=== PATIENT | female | born 1960 | race Caucasian/White ===

== ENCOUNTER 2016-12-08 18:01 | Emergency (ER) | payer MEDICARE, OTHER ==
--- NOTE | ~2016-12-08 | CR72 ---
[facility] A Service of [facility] RADIOLOGY TEXT RESULTS PATIENT: JAI VILLAREAL LOCATION: SED : 58 UNIT #: [id number] AGE: [address]: Honey Mora SEX: F ORDER DR: [id number] [address] [address] [id number] E MR#: [id number] Acc #: [id number] NAME: JAI VILLAREAL : 1960 SEX: F STUDY DATE/TIME: 12/08/2016 18:03 UNIT: SED ROOM: STUDY DESCRIPTION: CR Chest Single View Portable Attending Physician: Honey Mora Pa-C Ordering Physician: Honey Mora Pa-C Primary Care Physician: Beulah Sin A.P.R.N. MEDICAL IMAGING REPORT This report is preliminary unless electronic signature is present. EXAM AP radiograph of the chest 12/08/2016 HISTORY Short of air. COPD. FINDINGS AP radiograph of the chest is presented. Comparison to CT of the chest 11/03/2016. No acute bony abnormality. Heart normal in size. Hyperinflation of the lungs consistent with known underlying emphysema. No pleural effusion or pneumothorax. Airspace disease in the right infrahilar region with partial obscuration of the right heart border suggesting acute pneumonia in right middle lobe medial segment. Less pronounced patchy densities in the left infrahilar region suggesting a component of left lower lobe infrahilar pneumonia. Follow up to complete radiographic resolution recommended. If findings do not resolve with treatment for pneumonia then CT examination would be recommended for further assessment. There is some linear atelectasis or scarring at the right lung base. Left nipple shadow artifact similar to prior plain radiograph in 2014. There is no indication of suspicious nodule. Dictated by... Moustapha So M.D. THIS IS AN ELECTRONICALLY VERIFIED REPORT Moustapha So M.D. at 12/09/2016 3:05 PM KRYS/carole TD: 12/08/2016 23:12 JOB #: [id number] [facility] A Service of [facility] RADIOLOGY TEXT RESULTS PATIENT: JAI VILLAREAL LOCATION: SED : 58 UNIT #: [id number] AGE: [address]: Honey Mora SEX: F ORDER DR: MEDICAL IMAGING REPORT Page 1 of 1
--- NOTE | ~2016-12-08 | EKG ---
PATIENT: JAI VILLAREAL UNIT #: [id number] Ventricular Rate: 107 BPM Atrial Rate: 107 BPM P-R Interval: 144 ms QRS Duration: 106 ms Q-T Interval: 328 ms QTC Calculation(Bezet): 437 ms P [place]: 80 degrees Calculated R [place]: -167 degrees Calculated T [place]: 53 degrees Diagnosis Line: Sinus tachycardia Diagnosis Line: Right superior axis deviation Diagnosis Line: Pulmonary disease pattern Diagnosis Line: Incomplete right bundle branch block Diagnosis Line: Right ventricular hypertrophy Diagnosis Line: Abnormal ECG Diagnosis Line: When compared with ECG of 19-JUN-2015 16:43, Diagnosis Line: Criteria for Septal infarct are no longer Present Diagnosis Line: Confirmed by JORGE BARBER MD ([id number]) on 12/18/2016 Diagnosis Line: 11:50:35 AM INTERPRETING MD: ELISABETH AHUMDAA
[~2016-12-08 18:01] MED LIST: ADVAIR 500-501 EACH IN; ADVAIR 5001 DISK W/1 IH; ADVAIR 5001 DISK W/2 IH; ADVAIR 5001 DISK W/D PO; ALBUTEROL MININEB NEB; ALBUTEROL17 GM INH; ALPRAZOLAM0.5 MG PO; ALPRAZOLAM1 MG PO; AMOXICILLIN PO; ANEXSIA 7.5/3251 TA1 PO; ASPIRIN81 M2 PO; ASPIRIN81 MG PO; AUGMENTIN PO; COLACE PO; DOXYCYCLINE HY100 M3; DOXYCYCLINE PO; DUONEB 2.5-0.5 M3 ML NEB; EFFIENT10 MG PO; ENSURE237 ML PO; GUAIFENESIN LA600 M1 PO; LEVAQUIN PO; LEVAQUIN750 MG PO; LIPITOR20 MG PO; LORTAB 5/500 TA1 TA1 PO; MEDROL PO; MIRALAX17 G2 PO; NITROSTAT0.4 MG SL; NORCO 5/325 TAB1 TAB PO; OXYGEN; PERCOCET 5/321 UDTAB PO; PERCOCET 51 UDTAB 5/ PO; PHENERGAN25 MG PO; PREDNISONE PO; PREDNISONE TAPER; PREDNISONE10 MG PO; SPIRIVA18 MCG INH; TYLENOL325 M1 PO; VERAMYST10 GM; VERAMYST10 GM IN; VERAMYST10 GM NS; VOLTAREN50 MG PO; XANAX0.5 M1 PO; ZITHROMAX PO; [UNRECOGNIZED DRUG - OTHER] PO
[2016-12-08 18:34] LABS: BASOPHIL% 0.1 % (0-2.5); DIFF IND NO; HEMATOCRIT 32.3 % (35.0-45.0); HEMOGLOBIN 10.6 gm/dL (12.0-16.0); LYMPHOCYTE# 0.6 X10e3 (1.0-3.5); MEAN CELL VOLUME 88.2 FL (83-96); MEAN CORPUSCULAR HEMOGLOBIN 28.9 PG (28-34); MEAN CORPUSCULAR HGB CONC 32.8 g/dL (30-36); MEAN PLATELET VOLUME 8.2 FL (6.5-11.5); MONOCYTE# 1.2 X10e3 (0-1.0); MONOCYTE% 6.3 % (3.0-12.0); NEUTROPHIL# 17.7 X10e3 (1.5-7.1); NEUTROPHIL% 90.6 % (40-75); PLATELET COUNT 315 X10e3 (140-420); RED BLOOD COUNT 3.67 X10e (3.90-5.30); RED CELL DISTRIBUTION WIDTH 13.2 % (11.0-15.5); WHITE BLOOD COUNT 19.5 X10e3 (4.0-10.5)
[2016-12-08 18:44] LABS: POC - TROPONIN <0.05 ng/mL (<=0.05)
[2016-12-08 18:51] LABS: ALBUMIN SERUM 4.2 g/dL (3.5-5.0); BILIRUBIN, DIRECT 0.1 mg/dL (0.0-0.2); BILIRUBIN,INDIRECT 0.4 mg/dL (0.0-0.9); BILIRUBIN,TOTAL 0.5 mg/dL (0.2-2.0); CALCIUM SERUM 9.1 mg/dL (8.4-10.2); CREATININE SERUM 0.4 mg/dL (0.6-1.4); GLOM FILT RATE Estimated 115.6 mL/min (>60); POTASSIUM 3.5 mmol/L (3.5-5.1); PROTEIN TOTAL SERUM 7.7 g/dL (6.0-8.3)
[2017-05-19] MEDS ORDERED: PATIENT'S PHARMACY (16:37)
[2017-05-19] MEDS ORDERED: SYMBICORT 160/4.6 G1 INH (16:37)
[2017-05-19] MEDS ORDERED: LORTAB 7.5-3251 EACH PO (16:38)
[2017-05-19] MEDS ORDERED: XANAX0.5 M1 PO (16:38)
[2017-05-19] MEDS ORDERED: ECOTRIN325 MG PO (16:38)
[2017-05-19] MEDS ORDERED: LIPITOR20 MG PO (16:39)
[2017-05-19] MEDS ORDERED: SPIRIVA RESPIMAT4 G1 INH (16:39)
[2017-05-19] MEDS ORDERED: ALBUTEROL17 GM INH (16:39)
== END 2016-12-08 22:00 ==
LOC: SED 18:01
PROVIDERS: Physician Assistant
DX: J44.1 Chronic obstructive pulmonary disease with (acute) exacerbation (principal); J18.9 Pneumonia, unspecified organism; F41.9 Anxiety disorder, unspecified; Z90.710 Acquired absence of both cervix and uterus; Z79.82 Long term (current) use of aspirin; Z79.899 Other long term (current) drug therapy; Z88.5 Allergy status to narcotic agent
CPT/HCPCS: 36415; 71010; 80048; 80076; 82553; 84484; 85025; 87040; 93005; 94640; 96361; 96365; 96375; 99284; 99285; J0456; J0696; J2405

== ENCOUNTER 2017-03-17 20:30 | Emergency (ER) | payer MEDICARE, OTHER ==
[~2017-03-17] VITALS: Ht 170.2 cm; Wt 53.5 kg
--- NOTE | ~2017-03-17 | CT16 ---
[facility]. [facility] A Service [facility] RADIOLOGY TEXT RESULTS PATIENT: JAI VILLAREAL LOCATION: [facility] [place] : 58 UNIT #: [id number] AGE: [address]: Moustapha Eastman MD SEX: F ORDER DR: [id number] [place] [id number] E MR#: [id number] Acc #: [id number] NAME: JAI VILLAREAL : 1960 SEX: F STUDY DATE/TIME: 03/17/2017 22:16 UNIT: SED ROOM: STUDY DESCRIPTION: CT Angio Chest for PE Attending Physician: Moustapha Eastman M.D. Ordering Physician: Moustapha Eastman M.D. Primary Care Physician: Beulah Sin A.P.R.N. MEDICAL IMAGING REPORT This report is preliminary unless electronic signature is present. EXAM CTA of the chest, 03/17 at 22:16 INDICATION Shortness of air, worse over the last 2 days but present for the last 2 weeks with some associated cough. Elevated D-dimer level today. TECHNIQUE Axial images were obtained through the chest following IV contrast administration. 3-D reformats were obtained. This CT exam was performed with one or more of the following radiation dose reduction techniques: automatic exposure control, adjustment of mA and/or kV according to patient size, and iterative reconstruction. COMPARISON 11/03/2016 FINDINGS There is no pulmonary embolism or aortic dissection. There is atherosclerotic disease and coronary artery disease. No adenopathy. No pleural or pericardial effusion. There is severe emphysema. There is a stable benign 5.0-6.0 mm subpleural right lower lobe nodule. There is some chronic scarring in the lingula and right middle lobe. No new nodules are seen. There is no acute infiltrate. Upper abdomen is unremarkable. IMPRESSION 1. No pulmonary embolism or aortic dissection. 2. Emphysema with scattered areas of scarring which are stable. No acute findings in the chest. 3. Atherosclerotic disease and coronary artery disease. [facility] A Service of [facility] RADIOLOGY TEXT RESULTS PATIENT: JAI VILLAREAL [id number] [birth year] UNIT #: [id number] AGE: [address]: Moustapha Eastman MD SEX: F ORDER DR: Dictated by... Dion Muse Jr., M.D. THIS IS AN ELECTRONICALLY VERIFIED REPORT Dion Muse Jr., M.D. at 03/18/2017 9:34 PM NAEEM/robert TD: 03/18/2017 09:09 JOB #: [id number] MEDICAL IMAGING REPORT Page 1 of 1
--- NOTE | ~2017-03-17 | EKG ---
PATIENT: JAI VILLAREAL UNIT #: [id number] Ventricular Rate: 92 BPM Atrial Rate: 92 BPM P-R Interval: 144 ms QRS Duration: 92 ms Q-T Interval: 348 ms QTC Calculation(Bezet): 430 ms P [place]: 73 degrees Calculated R [place]: 84 degrees Calculated T [place]: 52 degrees Diagnosis Line: Normal sinus rhythm Diagnosis Line: Possible Left atrial enlargement Diagnosis Line: Incomplete right bundle branch block Diagnosis Line: Borderline ECG Diagnosis Line: Diagnosis Line: Confirmed by SKYLAR ADAIR MD ([id number]) on Diagnosis Line: 03/18/2017 2:34:07 PM INTERPRETING MD: GIOVANY AHUMADA
[2017-03-17 21:42] LABS: POC - CKMB 1.8 ng/mL (0.0-7.9)
[2017-03-17 21:43] LABS: POC - TROPONIN <0.05 ng/mL (<=0.05)
[2017-03-17 21:47] LABS: INR 1.2; PROTHROMBIN TIME (PATIENT) 13.8 SECONDS (9.5-12.4)
[2017-03-17 21:48] LABS: BASOPHIL% 0.2 % (0-2.5); EOSINOPHIL# 0.1 X10e3 (0-0.7); HEMATOCRIT 34.7 % (35.0-45.0); HEMOGLOBIN 11.1 gm/dL (12.0-16.0); LYMPHOCYTE# 1.7 X10e3 (1.0-3.5); LYMPHOCYTE% 13.3 % (17.0-45.0); MEAN CELL VOLUME 88.9 FL (83-96); MEAN CORPUSCULAR HEMOGLOBIN 28.5 PG (28-34); MEAN CORPUSCULAR HGB CONC 32.1 g/dL (30-36); MONOCYTE% 7.5 % (3.0-12.0); NEUTROPHIL# 10.1 X10e3 (1.5-7.1); PLATELET COUNT 284 X10e3 (140-420); RED BLOOD COUNT 3.91 X10e (3.90-5.30); RED CELL DISTRIBUTION WIDTH 15.3 % (11.0-15.5)
[2017-03-17 21:50] LABS: DIFF IND NO
[2017-03-17 21:54] LABS: PARTIAL THROMBOPLASTIN TIME 27.1 SECONDS (25.6-38.1)
[2017-03-17 22:03] LABS: ALBUMIN SERUM 4.5 g/dL (3.5-5.0); BILIRUBIN, DIRECT 0.1 mg/dL (0.0-0.2); BILIRUBIN,INDIRECT 0.5 mg/dL (0.0-0.9); BILIRUBIN,TOTAL 0.6 mg/dL (0.2-2.0); CALCIUM SERUM 8.7 mg/dL (8.4-10.2); CREATININE SERUM 0.6 mg/dL (0.6-1.4); GLOM FILT RATE Estimated 101.2 mL/min (>60); POTASSIUM 3.5 mmol/L (3.5-5.1); PROTEIN TOTAL SERUM 6.7 g/dL (6.0-8.3)
[2017-05-19] MEDS ORDERED: SYMBICORT 160/4.6 G1 INH (16:37)
[2017-05-19] MEDS ORDERED: PATIENT'S PHARMACY (16:37)
[2017-05-19] MEDS ORDERED: LORTAB 7.5-3251 EACH PO (16:38)
[2017-05-19] MEDS ORDERED: ECOTRIN325 MG PO (16:38)
[2017-05-19] MEDS ORDERED: XANAX0.5 M1 PO (16:38)
[2017-05-19] MEDS ORDERED: ALBUTEROL17 GM INH (16:39)
[2017-05-19] MEDS ORDERED: SPIRIVA RESPIMAT4 G1 INH (16:39)
[2017-05-19] MEDS ORDERED: LIPITOR20 MG PO (16:39)
== END 2017-03-18 00:11 | disposition home or self-care (01) ==
LOC: SED 20:30
PROVIDERS: Emergency Medicine
DX: J44.9 Chronic obstructive pulmonary disease, unspecified (principal); M54.9 Dorsalgia, unspecified; I25.10 Atherosclerotic heart disease of native coronary artery without angina pectoris; F41.9 Anxiety disorder, unspecified
CPT/HCPCS: 36415; 71275; 80048; 80076; 82553; 84484; 85025; 85379; 85610; 85730; 87040; 93005; 96374; 99285; J2930; Q9967

== ENCOUNTER 2017-04-30 08:50 | Emergency (ER) | payer MEDICARE, OTHER ==
--- NOTE | ~2017-04-30 | EKG ---
PATIENT: JAI VILLAREAL UNIT #: [id number] Ventricular Rate: 93 BPM Atrial Rate: 93 BPM P-R Interval: 144 ms QRS Duration: 92 ms Q-T Interval: 356 ms QTC Calculation(Bezet): 442 ms P Blanch: 72 degrees Calculated R Blanch: 88 degrees Calculated T Blanch: 52 degrees Diagnosis Line: Normal sinus rhythm Diagnosis Line: Possible Left atrial enlargement Diagnosis Line: Incomplete right bundle branch block Diagnosis Line: Borderline ECG Diagnosis Line: When compared with ECG of 17-MAR-2017 21:12, Diagnosis Line: No significant change was found Diagnosis Line: Confirmed by SKYLAR ADAIR MD ([id number]) on Diagnosis Line: 05/01/2017 10:54:57 AM INTERPRETING MD: GIOVANY AHUMADA
--- NOTE | ~2017-04-30 | CR72 ---
[facility]. [facility] A Service of [facility] & [facility] RADIOLOGY TEXT RESULTS PATIENT: JAI VILLAREAL LOCATION: SED : 58 UNIT #: [id number] AGE: [address]: Lester Burgos MD SEX: F ORDER DR: [id number] [address] [address] [id number] E MR#: [id number] Acc #: [id number] NAME: JAI VILLAREAL : 1960 SEX: F STUDY DATE/TIME: 04/30/2017 9:48 UNIT: SED ROOM: STUDY DESCRIPTION: CR Chest Single View Portable Attending Physician: Lester Burgos M.D. Ordering Physician: Lester Burgos M.D. Primary Care Physician: Beulah Sin A.P.R.N. MEDICAL IMAGING REPORT This report is preliminary unless electronic signature is present. EXAM Single view of the chest dated 04/30/2017. COMPARISON Chest 2 views dated 02/09/2017. HISTORY Shortness of air, for 2-3 days. Emphysema, COPD. FINDINGS Single view of the chest was obtained. Lungs are hyperinflated, suggestive of emphysematous changes. No patchy dense consolidation, pleural effusion or pneumothorax is seen. Dictated by... Nilesh Li M.D. THIS IS AN ELECTRONICALLY VERIFIED REPORT Nilesh Li M.D. at 04/30/2017 6:39 PM CPR/gz TD: 04/30/2017 13:08 JOB #: [id number] MEDICAL IMAGING REPORT Page 1 of 1
[2017-04-30 09:42] LABS: BASOPHIL% 0.2 % (0-2.5); EOSINOPHIL# 0.1 X10e3 (0-0.7); EOSINOPHIL% 1.8 % (0.0-7.0); HEMATOCRIT 33.3 % (35.0-45.0); HEMOGLOBIN 10.9 gm/dL (12.0-16.0); LYMPHOCYTE# 0.9 X10e3 (1.0-3.5); LYMPHOCYTE% 13.5 % (17.0-45.0); MEAN CELL VOLUME 87.1 FL (83-96); MEAN CORPUSCULAR HEMOGLOBIN 28.6 PG (28-34); MEAN CORPUSCULAR HGB CONC 32.8 g/dL (30-36); MEAN PLATELET VOLUME 7.2 FL (6.5-11.5); MONOCYTE# 0.8 X10e3 (0-1.0); MONOCYTE% 11.1 % (3.0-12.0); NEUTROPHIL# 5.2 X10e3 (1.5-7.1); NEUTROPHIL% 73.4 % (40-75); PLATELET COUNT 324 X10e3 (140-420); RED BLOOD COUNT 3.83 X10e (3.90-5.30); RED CELL DISTRIBUTION WIDTH 13.8 % (11.0-15.5)
[2017-04-30 09:43] LABS: DIFF IND NO
[2017-04-30 09:59] LABS: POC - CKMB 2.3 ng/mL (0.0-7.9); POC - MYOGLOBIN 43.2 ng/mL (0.0-169.0); POC - TROPONIN <0.05 ng/mL (<=0.05)
[2017-04-30 10:07] LABS: ALBUMIN SERUM 3.3 g/dL (3.5-5.0); BILIRUBIN, DIRECT 0.1 mg/dL (0.0-0.2); BILIRUBIN,INDIRECT 0.7 mg/dL (0.0-0.9); BILIRUBIN,TOTAL 0.8 mg/dL (0.2-2.0); CALCIUM SERUM 8.7 mg/dL (8.4-10.2); CREATININE SERUM 0.3 mg/dL (0.6-1.4); GLOM FILT RATE Estimated 127.2 mL/min (>60); POTASSIUM 3.9 mmol/L (3.5-5.1); PROTEIN TOTAL SERUM 6.6 g/dL (6.0-8.3)
[2017-04-30 11:45] LABS: POC - CKMB 1.5 ng/mL (0.0-7.9); POC - MYOGLOBIN 32.5 ng/mL (0.0-169.0); POC - TROPONIN <0.05 ng/mL (<=0.05)
[2017-04-30 12:02] LABS: URINE SOURCE CLEAN CATCH
[2017-04-30 12:10] LABS: URINE APPEARANCE CLEAR; URINE BILIRUBIN NEG (NEG); URINE BLOOD TRACE-INTACT (NEG); URINE COLOR YELLOW; URINE GLUCOSE NEG (NORM); URINE KETONE TRACE (NEG); URINE LEUKOCYTE ESTERASE NEG (NEG); URINE NITRATE NEG (NEG); URINE PH 5.5 (5-8); URINE PROTEIN NEG (NEG); URINE UROBILINOGEN 0.2 MG/DL (NORM)
[2017-04-30 12:21] LABS: MICRO INDICATED? YES
[2017-04-30 12:23] LABS: CULTURE INDICATED? YES; URINE BACTERIA 1+ (NEG)
[2017-04-30 12:24] LABS: URINE MUCUS PRESENT; URINE SQUAMOUS EPITHELIAL CELL MODERATE /[HPF]; URINE TRANSITIONAL EPI CELLS OCCAS /[HPF]
[2017-05-19] MEDS ORDERED: PATIENT'S PHARMACY (16:37)
[2017-05-19] MEDS ORDERED: SYMBICORT 160/4.6 G1 INH (16:37)
[2017-05-19] MEDS ORDERED: LORTAB 7.5-3251 EACH PO (16:38)
[2017-05-19] MEDS ORDERED: XANAX0.5 M1 PO (16:38)
[2017-05-19] MEDS ORDERED: ECOTRIN325 MG PO (16:38)
[2017-05-19] MEDS ORDERED: ALBUTEROL17 GM INH (16:39)
[2017-05-19] MEDS ORDERED: SPIRIVA RESPIMAT4 G1 INH (16:39)
[2017-05-19] MEDS ORDERED: LIPITOR20 MG PO (16:39)
== END 2017-04-30 16:45 ==
LOC: SED 08:50
PROVIDERS: Emergency Medicine
DX: J44.1 Chronic obstructive pulmonary disease with (acute) exacerbation (principal); F41.9 Anxiety disorder, unspecified; I25.10 Atherosclerotic heart disease of native coronary artery without angina pectoris; E78.5 Hyperlipidemia, unspecified; Z95.5 Presence of coronary angioplasty implant and graft; Z90.710 Acquired absence of both cervix and uterus; Z87.891 Personal history of nicotine dependence; Z79.82 Long term (current) use of aspirin; Z79.899 Other long term (current) drug therapy; Z88.5 Allergy status to narcotic agent
CPT/HCPCS: 36415; 71010; 80048; 80076; 81003; 82553; 83605; 83874; 83880; 84484; 85025; 87086; 93005; 94640; 96361; 96374; 99285; J1100